=== PATIENT | male | born 1980 | race Caucasian/White ===

== ENCOUNTER → 2020-12-14 | Outpatient (CLI) | payer OTHER | LOC: RAD 07:00 | DX: M51.17 Intervertebral disc disorders with radiculopathy, lumbosacral region (principal) ==

== ENCOUNTER 2023-10-15 15:40 | Emergency (ER) | payer OTHER ==
[2023-11-20 06:23] LABS: HEMATOCRIT 47.7 % (42.0-52.0); HEMOGLOBIN 16.8 g/dL (13.5-18.0); MEAN CELL VOLUME 86 fl (78-100); MEAN CORPUSCULAR HEMOGLOBIN 30 pg (27-31); MEAN CORPUSCULAR HGB CONC 35 g/dL (33-37); MEAN PLATELET VOLUME 12.3 fl (7.4-10.4); RED BLOOD COUNT 5.55 M/mm3 (4.20-5.60); RED CELL DISTRIBUTION WIDTH 12.8 % (11.5-14.5); WHITE BLOOD COUNT 4.8 K/mm3 (4.8-10.8)
[2023-11-20 06:24] LABS: PLATELET COUNT 19 K/mm3 (130-400)
[2023-11-20 06:27] LABS: ALBUMIN 4.7 g/dL (3.5-5.0); ALT/SGPT 33 U/L (0-55); AST-SGOT 36 U/L (5-34); CALCIUM 9.7 mg/dL (8.3-10.5); CARBON DIOXIDE 21 mmol/L (22-29); GLUCOSE 104 mg/dL (75-110); SODIUM 141 mmol/L (136-145); TOTAL BILIRUBIN 0.8 mg/dL (0.2-1.2); TOTAL PROTEIN 7.3 g/dL (6.4-8.3); TROPONIN-I < 0.030 ng/mL (0.00-0.033)
[2023-11-20 06:31] LABS: PARTIAL THROMBOPLASTIN TIME 19.9 SECONDS (21.0-32.0); PROTHROMBIN TIME 10.8 SECONDS (9.0-12.0)
[2023-11-20 06:32] LABS: LYMPHOCYTE 50 % (20-51); MONOCYTE 6 % (3-10); NEUTROPHILS 43 % (42-75)
== END 2023-10-15 17:15 | disposition home or self-care (01) ==
LOC: ED 15:40
PROVIDERS: Physician Assistant
DX: R07.89 Other chest pain (principal)